=== PATIENT | female | born 1965 | race Caucasian/White ===

== ENCOUNTER 2023-11-08 23:37 | Emergency (ER) | payer OTHER, SELFPAY ==
[2023-11-08 23:40] VITALS: BP 160/66; PULSE 86; RESP 16; TEMP 36.6; O2SAT 98; BMI 35.0
[2023-11-09] VITALS (7 sets, daily range): BP systolic 110–115; BP diastolic 42–51; PULSE 70–76; RESP 13–22; O2SAT 98–99
--- NOTE | 2023-11-09 00:20 | ECG_ITS ---
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
--- NOTE | 2023-11-09 00:29 | ED.GENADUL1 ---
HPI - General Adult General Chief complaint: Back Pain/Injury Stated complaint: BACK PAIN Time Seen by Provider: 11/09/23 00:08 Source: patient Mode of arrival: walk-in Limitations: no limitations History of Present Illness HPI narrative: This 58-year-old female, diabetic presents for evaluation of left upper back pain that started yesterday and has radiated into the front of her chest since that time. She states the pain in the back is underneath her rib cage. It is positional in nature and worse with sitting straight up. She states it started last night and today it worsened. She took some ibuprofen around 1 PM. She has not had any fevers or chills. She has no focal weakness numbness or tingling. She denies any praveena abdominal pain or nausea vomiting. She has no lower extremity pain or swelling. She states that her appetite is been normal. She has not had any vomiting or diarrhea. She denies any worsening of pain with deep breathing. It seems mostly positional for her. She has no lower 70 pain or swelling. She did have COVID 19 last March but has been healthy since that time. She does not having history of kidney stones. She has not had any urinary symptoms or hematuria. She denies a history of chronic back pain or any recent strenuous activity although she was doing a lot of cooking over the and holiday and spent a lot of time on her feet. Related Data Home Medications Medication Instructions Recorded Confirmed amlodipine 5 mg tablet mg 11/08/23 aspirin 81 mg chewable tablet 81 mg PO DAILY 11/08/23 11/08/23 (Aspirin Childrens) atorvastatin 10 mg tablet mg 11/08/23 blood sugar diagnostic (Contour 11/08/23 11/08/23 Next Test Strips) cholecalciferol (vitamin D3) 50 50 mcg PO DAILY 11/08/23 11/08/23 mcg (2,000 unit) capsule insulin lispro 200 unit/mL (3 mL) subcut 11/08/23 subcutaneous pen (Humalog KwikPen U-200 Insulin) insulin pump cart,automated,BT 11/08/23 11/08/23 (Omnipod 5 G6 Pods (Gen 5) subcutaneous cartridge) insulin pump cartridge,automated 11/08/23 11/08/23 dose,BT with controller subcutaneous (Omnipod 5 G6 Intro Kit (Gen 5) subcutaneous cartridge with controller) metformin 500 mg tablet,extended mg PO 11/08/23 release 24 hr Allergies Allergy/AdvReac Type Severity Reaction Status Date / Time lisinopril Allergy Verified 11/08/23 23:44 losartan Allergy Verified 11/08/23 23:44 Review of Systems ROS Status of ROS 10 or more systems reviewed and unremarkable except as noted in history and below PFS PFS Social History Smoking status: Never smoker Exam Narrative Exam Narrative: Nurses note and vital signs reviewed and patient is not hypoxic. Blood pressure is notably elevated at 160/66 General: Overweight female resting currently on the stretcher, no respiratory distress Skin: Warm, dry, no pallor noted. There is no rash noted. Head: Normocephalic, atraumatic Eye: Normal conjunctiva, no drainage, EOMI. PERRL Ears, Nose, Mouth, and Throat: oral mucosa is moist. Cardiovascular: Regular Rate and Rhythm S1S2,, Pulses are brisk and equal bilaterally Respiratory: Patient is in no distress, no accessory muscle use, lungs are clear to auscultation, no wheezing, rales or rhonchi Back: non-tender, no CVA tenderness bilaterally to percussion.No reproducible tenderness in the left or right thoracic or lumbar spine GI: Obese, soft, non-distended, non-tender, normal bowel sounds, no tenderness to palpation, no masses appreciated. No rebound, guarding, or rigidity noted. Musculoskeletal: The patient has no evidence of calf tenderness, no pitting edema, symmetrical pulses noted bilaterally Neurological: A&O x4, normal speech Psychiatric: Cooperative Constitutional Vital Signs, click to edit/add: Last Vital Signs Temp 97.8 F 11/08/23 23:40 Pulse 72 11/09/23 01:03 Resp 13 11/09/23 01:03 BP 110/42 L 11/09/23 02:00 Pulse Ox 98 11/09/23 01:03 O2 Del Method Room Air 11/08/23 23:40 Course Vital Signs Vital signs: Vital Signs Temperature 97.8 F 11/08/23 23:40 Pulse Rate 86 11/08/23 23:40 Respiratory Rate 16 11/08/23 23:40 Blood Pressure 160/66 H 11/08/23 23:40 Pulse Oximetry 98 11/08/23 23:40 Oxygen Delivery Method Room Air 11/08/23 23:40 Temperature 97.8 F 11/08/23 23:40 Pulse Rate 72 11/09/23 01:03 Respiratory Rate 13 11/09/23 01:03 Blood Pressure 110/42 L 11/09/23 02:00 Pulse Oximetry 98 11/09/23 01:03 Oxygen Delivery Method Room Air 11/08/23 23:40 Medical Decision Making MDM Narrative Medical decision making narrative: This 58-year-old female who is a type I diabetic presents for evaluation of left mid to upper back pain that started yesterday and throughout the day radiated around underneath her left breast. She is not having any nausea or vomiting. She denies any praveena chest pain or shortness of breath. She denies any dizziness or syncope. She states the pain is worse when she is sitting up straight. There is no weakness numbness tingling or other neurologic symptoms associated with the back pain. She denies any recent injury or strenuous activity but does state that she was doing a lot of work over the holidays and had to be standing more than she typically would. She has no reproducible tenderness or skin rash. She does not have a history of kidney stones and denies any nausea or urinary symptoms. Due to the fact that she is diabetic with acute onset of this pain I ordered an EKG which is normal sinus rhythm at 70 beats for minute with no acute changes. An IV was placed and she was medicated with IV fluids and Toradol. On reevaluation she states she is feeling better. She has a normal white count and hemoglobin. She has normal electrolytes. She has a normal lipase. Troponin and d-dimer are also normal. Urinalysis is positive for trace leukocyte esterase and 2-5 white blood high-power field. This is likely not causing her back pain. Two-view chest x-ray and x-ray of the thoracic spine was ordered. It shows a moderate scoliosis but no acute infiltrate. She states that she is aware that she has the scoliosis and when she was younger had to wear a back brace. We discussed that in light of her scoliosis, she may have been more active over the holidays than she realized and her symptoms are likely musculoskeletal in nature. She will be discharged home with Rx for a muscle relaxant and 600mg ibuprofen. Medical Records Medical records narrative: The [address] [address] XRay Report Signed Patient: HAYES JEWELL MR#: [id number] : 1965 Acct:[id number] Age/Sex: 58 / F ADM Date: 11/08/23 Loc: ER Attending Dr: Ordering Physician: Ashley Kwon Date of Service: 11/09/23 Procedure(s): XR chest 2V Accession Number(s): [id number] cc: NICKO JOHNSON ; Ashley Marker~ The [place] [address] Patient Name: HAYES JEWELL MRN: [id number] date: 1965 Sex: F Assigned Patient Location: ER Current Patient Location: ER Accession/Order Number: [id number] Exam Date: 11/09/2023 01:30 Report Date: 11/09/2023 02:04 At the request of: ASHLEY MARKER Procedure: XR chest 2V EXAM: XR chest 2V HISTORY: left sided back pain COMPARISON: None. TECHNIQUE: 2 views of the chest were obtained. FINDINGS: The cardiac silhouette is normal in size. The lungs are clear. There is no significant pneumothorax or pleural effusion. No acute osseous abnormality is seen. XR/XR chest 2V IMPRESSION: 1. No acute cardiopulmonary abnormality. Electronically authenticated by: Hang RENDON Date: 11/09/2023 02:0 [place] [address] XRay Report Signed Patient: HAYES JEWELL MR#: [id number] : 1965 Acct:[id number] Age/Sex: 58 / F ADM Date: 11/08/23 Loc: ER Attending Dr: Ordering Physician: Ashley Kwon Date of Service: 11/09/23 Procedure(s): XR thoracic spine 3V Accession Number(s): [id number] cc: NICKO JOHNSON ; Ashley Marker~ The [address] [address] Patient Name: HAYES JEWELL MRN: [id number] date: 1965 Sex: F Assigned Patient Location: ER Current Patient Location: ER Accession/Order Number: [id number] Exam Date: 11/09/2023 01:30 Report Date: 11/09/2023 02:06 At the request of: ASHLEY MARKER Procedure: XR thoracic spine 3V EXAM: XR thoracic spine 3V HISTORY: left sided back pain COMPARISON: None. TECHNIQUE: Lateral, frontal, and swimmer's views of the thoracic spine were obtained. FINDINGS: No acute fracture or subluxation is seen. The vertebral body heights are preserved. There is S-shaped scoliosis of the imaged spine. There are multilevel degenerative changes including endplate osteophytes and degenerative disc disease. The imaged lungs are clear. XR/XR thoracic spine 3V IMPRESSION: 1. No acute osseous abnormality of the thoracic spine is seen. 2. S-shaped scoliosis of the imaged spine with multilevel degenerative changes. Lab Data Labs: Lab Results 11/09/23 11/09/23 Range/Units 00:35 00:39 WBC 11.5 H (4.0-11.0) 10^3/uL RBC 4.64 (4.20-5.40) 10^6/uL Hgb 13.7 (12.0-16.0) g/dL Hct 42.7 (36.0-48.0) % MCV 92.0 (81.0-99.0) fL MCH 29.5 (26.7-34.0) pg MCHC 32.1 (29.9-35.2) g/dL RDW 13.7 (11.0-15.0) % Plt Count 334 (150-450) 10^3/uL MPV 10.7 (9.5-13.5) fL Neut % (Auto) 55.8 (43.0-75.0) % Lymph % (Auto) 33.2 (20.5-60.0) % Sanders % (Auto) 7.9 (1.7-12.0) % Eos % (Auto) 1.8 (0.9-7.0) % Baso % (Auto) 0.8 (0.2-2.0) % Neut # (Auto) 6.4 (1.4-6.5) 10^3/uL Lymph # (Auto) 3.8 (1.2-3.8) 10^3/uL Sanders # (Auto) 0.9 H (0.3-0.8) 10^3/uL Eos # (Auto) 0.2 (0.0-0.7) 10^3/uL Baso # (Auto) 0.1 (0.0-0.1) 10^3/uL Abs Immat Gran (auto) 0.06 H (0.00-0.03) 10^3/uL Imm/Tot Granulo (auto) 0.5 (0.0-0.5) % D-Dimer 0.26 (<=0.59) mg/L FEU Sodium 141 (136-145) mmol/L Potassium 3.7 (3.5-5.1) mmol/L Chloride 103 (98-107) mmol/L Carbon Dioxide 28.4 (21.0-32.0) mmol/L Anion Gap 13.3 BUN 20.0 H (7.0-18.0) mg/dL Creatinine 0.71 (0.55-1.02) mg/dL Est GFR ( Amer) >60 (>=60) Est GFR (Non-Af Amer) >60 (>=60) BUN/Creatinine Ratio 28.2 Glucose 114 H (74-106) mg/dL Calcium 9.8 (8.5-10.1) mg/dL Total Bilirubin 0.4 (0.2-1.0) mg/dL AST 18 (15-37) U/L ALT 33 (14-59) U/L Alkaline Phosphatase 106 (46-116) U/L Troponin I High Sens 4.8 (4.0-51.3) pg/mL Total Protein 8.4 H (6.4-8.2) g/dL Albumin 3.7 (3.4-5.0) g/dL Globulin 4.7 g/dL Albumin/Globulin Ratio 0.8 Lipase 37.0 (16.0-77.0) U/L Urine Color Lt. yellow (YELLOW) Urine Clarity Clear (CLEAR) Urine pH 6.0 (5.0-9.0) Ur Specific [place] <=1.005 A (1.005-1.025) Urine Protein Negative (NEG/TRACE) mg/dL Urine Glucose (UA) Negative (NEGATIVE) mg/dL Urine Ketones Negative (NEGATIVE) mg/dL Urine Occult Blood Negative (NEGATIVE) Urine Nitrite Negative (NEGATIVE) Urine Bilirubin Negative (NEGATIVE) Urine Urobilinogen 0.2 (0.2-1.0) EU/dL Ur Leukocyte Esterase Small A (NEGATIVE) Urine RBC 0-2 (0-2) #/HPF Urine WBC 2-5 A (NONE SEEN) #/HPF Ur Squamous Epith Cells Rare (NONE/RARE) #/LPF Urine Crystals None seen (None Seen) #/HPF Urine Bacteria None seen (NONE SEEN) #/HPF Urine Casts None seen (NONE SEEN) #/LPF Urine Mucus None seen (NONE SEEN) ECG Data Attestation: I personally reviewed and interpreted this ECG as follows: (Sinus rhythm at 70 beats for minute, normal axis, normal intervals, no acute ST segment elevation or T-wave inversion) Discharge Plan Discharge Chief Complaint: Back Pain/Injury Clinical Impression: Scoliosis, Thoracic back pain Patient Disposition: Home, Self-Care Time of Disposition Decision: 02:12 Condition: Good Prescriptions / Home Meds: No Action atorvastatin 10 mg tablet (DME) Contour Next Test Strips Strip MISCELLANEOUS amlodipine 5 mg tablet metformin 500 mg tablet extended release 24 hr PO Humalog KwikPen Insulin 200 unit/mL (3 mL) insulin pen SUBCUT (DME) Omnipod 5 G6 Pods (Gen 5) Cartridge SUBCUT (DME) Omnipod 5 G6 Intro Kit (Gen 5) Cartridge SUBCUT aspirin [Aspirin Childrens] 81 mg tablet,chewable 81 mg PO DAILY cholecalciferol (vitamin D3) 50 mcg (2,000 unit) capsule 50 mcg PO DAILY Instructions: Thoracic Pain (ED), Back Pain (ED) Stand Alone Forms: Portal Instructions Referrals: NICKO JOHNSON [Primary Care Provider] - 1 week Discharge Date/Time: 11/09/23 02:37
[2023-11-09 00:46] LABS: Basophils Absolute Auto 0.1 10^3/uL (0.0-0.1); Basophils Percent Auto 0.8 % (0.2-2.0); Eosinophils Absolute Auto 0.2 10^3/uL (0.0-0.7); Eosinophils Percent Auto 1.8 % (0.9-7.0); Hematocrit 42.7 % (36.0-48.0); Hemoglobin 13.7 g/dL (12.0-16.0); Immature Granulocytes Abs Auto 0.06 10^3/uL (0.00-0.03); Immature Granulocytes Pct Auto 0.5 % (0.0-0.5); Lymphocytes Absolute Auto 3.8 10^3/uL (1.2-3.8); Lymphocytes Percent Auto 33.2 % (20.5-60.0); Mean Corpuscular HGB Conc 32.1 g/dL (29.9-35.2); Mean Corpuscular Hemoglobin 29.5 pg (26.7-34.0); Mean Platelet Volume 10.7 fL (9.5-13.5); Monocytes Absolute Auto 0.9 10^3/uL (0.3-0.8); Monocytes Percent Auto 7.9 % (1.7-12.0); Neutrophils Absolute Auto 6.4 10^3/uL (1.4-6.5); Neutrophils Percent Auto 55.8 % (43.0-75.0); Platelet Count 334 10^3/uL (150-450); Red Blood Count 4.64 10^6/uL (4.20-5.40); Red Cell Distribution Width 13.7 % (11.0-15.0); White Blood Count 11.5 10^3/uL (4.0-11.0)
[2023-11-09] MEDS: 0.9 % SODIUM CHLORIDE 1,000 ML 1000 ML IV (00:49)
[2023-11-09] MEDS: KETOROLAC TROMETHAMINE 30 MG/ML VIAL 15 MG IVP (00:49)
[2023-11-09 00:59] LABS: D Dimer 0.26 mg/L FEU (<=0.59)
[2023-11-09 01:02] LABS: Alanine Aminotransferase 33 U/L (14-59); Albumin Globulin Ratio 0.8; Albumin Level 3.7 g/dL (3.4-5.0); Alkaline Phosphatase 106 U/L (46-116); Anion Gap 13.3; Aspartate Amino Transferase 18 U/L (15-37); BUN Creatinine Ratio 28.2; Bilirubin Total 0.4 mg/dL (0.2-1.0); Calcium 9.8 mg/dL (8.5-10.1); Carbon Dioxide 28.4 mmol/L (21.0-32.0); Chloride 103 mmol/L (98-107); Estimated GFR (African America >60 (>=60); Estimated GFR (Non-African Ame >60 (>=60); Globulin 4.7 g/dL; Glucose 114 mg/dL (74-106); Potassium 3.7 mmol/L (3.5-5.1); Sodium 141 mmol/L (136-145); Total Protein 8.4 g/dL (6.4-8.2); Troponin I High Sensitivity 4.8 pg/mL (4.0-51.3)
--- NOTE | 2023-11-09 01:12 | XR_ITS ---
The [address] [address] Patient Name: HAYES JEWELL MRN: [id number] date: 1965 Sex: F Assigned Patient Location: ER Current Patient Location: ER Accession/Order Number: [id number] Exam Date: 11/09/2023 01:30 Report Date: 11/09/2023 02:04 At the request of: TRINY MARKER Procedure: XR chest 2V EXAM: XR chest 2V HISTORY: left sided back pain COMPARISON: None. TECHNIQUE: 2 views of the chest were obtained. FINDINGS: The cardiac silhouette is normal in size. The lungs are clear. There is no significant pneumothorax or pleural effusion. No acute osseous abnormality is seen. XR/XR chest 2V IMPRESSION: 1. No acute cardiopulmonary abnormality. Electronically authenticated by: Hang RENDON Date: 11/09/2023 02:04
--- NOTE | 2023-11-09 01:12 | XR_ITS ---
The [address] [address] Patient Name: HAYES JEWELL MRN: [id number] date: 1965 Sex: F Assigned Patient Location: ER Current Patient Location: ER Accession/Order Number: [id number] Exam Date: 11/09/2023 01:30 Report Date: 11/09/2023 02:06 At the request of: TRINY MARKER Procedure: XR thoracic spine 3V EXAM: XR thoracic spine 3V HISTORY: left sided back pain COMPARISON: None. TECHNIQUE: Lateral, frontal, and swimmer's views of the thoracic spine were obtained. FINDINGS: No acute fracture or subluxation is seen. The vertebral body heights are preserved. There is S-shaped scoliosis of the imaged spine. There are multilevel degenerative changes including endplate osteophytes and degenerative disc disease. The imaged lungs are clear. XR/XR thoracic spine 3V IMPRESSION: 1. No acute osseous abnormality of the thoracic spine is seen. 2. S-shaped scoliosis of the imaged spine with multilevel degenerative changes. Electronically authenticated by: Hang RENDON Date: 11/09/2023 02:06
[2023-11-09 01:18] LABS: Bilirubin Urine NEGATIVE (NEGATIVE); Blood Urine NEGATIVE (NEGATIVE); Clarity Urine CLEAR (CLEAR); Color Urine LT. YELLOW (YELLOW); Glucose Urine UA NEGATIVE (NEGATIVE); Ketones Urine NEGATIVE (NEGATIVE); Leukocyte Esterase Urine SMALL (NEGATIVE); Nitrite Urine NEGATIVE (NEGATIVE); Protein Urine NEGATIVE (NEG/TRACE); Specific Gravity Urine <=1.005 (1.005-1.025); Urobilinogen Urine 0.2 EU/dL (0.2-1.0)
[2023-11-09 01:25] LABS: Bacteria Urine NONE SEEN #/HPF (NONE SEEN); Cast Seen? NONE SEEN #/LPF (NONE SEEN); Crystals Seen? None Seen #/HPF (None Seen); Mucus Urine NONE SEEN (NONE SEEN); RBC Urine 0-2 #/HPF (0-2); Squamous Epithelial Cell Urine RARE #/LPF (NONE/RARE)
== END 2023-11-09 02:37 | disposition home or self-care (01) ==
PROVIDERS: Emergency Provider Emergency Medicine; PCP Family Medicine
DX: M54.6 Pain in thoracic spine (principal); M41.9 Scoliosis, unspecified; E10.9 Type 1 diabetes mellitus without complications; Z86.16 Personal history of COVID-19; Z79.84 Long term (current) use of oral hypoglycemic drugs; Z79.4 Long term (current) use of insulin; Z96.41 Presence of insulin pump (external) (internal); E66.9 Obesity, unspecified; Z68.35 Body mass index [BMI] 35.0-35.9, adult
CPT/HCPCS: 36415; 71046; 72072; 80053; 81001; 83690; 84484; 85025; 85378; 93005; 96374; 99285; J1885

== ENCOUNTER 2023-11-11 08:22 | Emergency (ER) | payer OTHER, SELFPAY ==
[2023-11-11 08:26] VITALS: BP 174/70; PULSE 79; RESP 16; TEMP 36.6; O2SAT 98; BMI 35.0
--- NOTE | 2023-11-11 08:41 | CT_ITS ---
The [address] [address] Patient Name: HAYES JEWELL MRN: [id number] date: 1965 Sex: F Assigned Patient Location: ER Current Patient Location: ER Accession/Order Number: [id number] Exam Date: 11/11/2023 09:03 Report Date: 11/11/2023 10:01 At the request of: LORY GREER Procedure: CT abdomen pelvis wo con EXAMINATION: CT abdomen pelvis wo con HISTORY: abd pain COMPARISON: No relevant comparison available. TECHNIQUE: Axial, Coronal, and Sagittal images were created without IV contrast. Dose reduction techniques were achieved by using automated exposure control and/or adjustment of mA and/or kV according to patient size and/or use of iterative reconstruction technique. FINDINGS: LUNG BASES: No visible pulmonary or pleural disease. LIVER: No enlargement, atrophy, abnormal density, or significant focal lesion. BILIARY: No dilatation or calcification. PANCREAS: No lesion, fluid collection, ductal dilatation, or atrophy. SPLEEN: No enlargement or focal lesion. ADRENALS: No mass or enlargement. KIDNEYS: No mass, obstruction, or calcification. BOWEL/MESENTERY: No visible mass, obstruction, or bowel wall thickening. AORTA/VASCULAR: No aneurysm or dissection. RETROPERITONEUM: No mass or adenopathy. LYMPH NODES: No adenopathy. URINARY BLADDER: Moderately enlarged urinary bladder PELVIC ORGANS: No visible mass. Pelvic organs appropriate for patient age. ABDOMINAL WALL: No mass or hernia. BONES: Degenerative changes with rotatory dextrocurvature OTHER: Negative. CT/CT abdomen pelvis wo con IMPRESSION: No obstructive uropathy Electronically authenticated by: SHARAD CALHOUN Date: 11/11/2023 10:01
[2023-11-11 08:48] LABS: Basophils Absolute Auto 0.1 10^3/uL (0.0-0.1); Basophils Percent Auto 0.9 % (0.2-2.0); Eosinophils Absolute Auto 0.2 10^3/uL (0.0-0.7); Eosinophils Percent Auto 1.8 % (0.9-7.0); Hematocrit 41.9 % (36.0-48.0); Hemoglobin 13.6 g/dL (12.0-16.0); Immature Granulocytes Abs Auto 0.06 10^3/uL (0.00-0.03); Immature Granulocytes Pct Auto 0.7 % (0.0-0.5); Lymphocytes Absolute Auto 2.7 10^3/uL (1.2-3.8); Lymphocytes Percent Auto 30.9 % (20.5-60.0); Mean Corpuscular HGB Conc 32.5 g/dL (29.9-35.2); Mean Corpuscular Hemoglobin 29.3 pg (26.7-34.0); Mean Corpuscular Volume 90.3 fL (81.0-99.0); Mean Platelet Volume 11.1 fL (9.5-13.5); Monocytes Absolute Auto 0.7 10^3/uL (0.3-0.8); Monocytes Percent Auto 8.2 % (1.7-12.0); Neutrophils Percent Auto 57.5 % (43.0-75.0); Platelet Count 284 10^3/uL (150-450); Red Blood Count 4.64 10^6/uL (4.20-5.40); Red Cell Distribution Width 13.8 % (11.0-15.0); White Blood Count 8.7 10^3/uL (4.0-11.0)
--- NOTE | 2023-11-11 09:06 | ED.GENADUL1 ---
HPI - General Adult General Chief complaint: Abdominal Pain Stated complaint: BACK PAIN/ ABDOMINAL PAIN Time Seen by Provider: 11/11/23 08:33 Source: patient Mode of arrival: walk-in History of Present Illness HPI narrative: Patient is a 58-year-old female who is presenting to the Emergency Room with chief complaint of left lower back pain that radiates to left flank, into the left lower quadrant. Patient was here 2 days ago, had extensive lab work, chest x-ray, thoracic x-ray that showed no significant findings. Patient has a history of scoliosis. Patient has no rash. Patient has no bowel pain, nausea or vomiting. No history kidney stones. No urinary frequency, urgency or burning. Patient does not believe that she is constipated. Patient stated the pain started Tuesday evening on . Patient did a lot of cooking activities a home over , but this was not significantly abnormal for her. 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 No chest pain or shortness of breath. Patient had EKG, d-dimer, and extensive lab studies in a few days ago. Patient chief concern is kidney stone. All systems are negative except as noted/marked. All systems reviewed and otherwise negative. . Nurses note and vital signs reviewed and patient is not hypoxic. General: The patient appears well and in no apparent distress. Patient is resting comfortably on cart. Patient is not toxic, lethargic, or listless Skin: Warm, dry, no pallor noted. There is no rash noted. No petechiae, purpura. Head: Normocephalic, atraumatic Eye: Normal conjunctiva, no drainage, EOMI. PERRL Ears, Nose, Mouth, and Throat: oral mucosa is moist. Cardiovascular: Regular Rate and Rhythm, no murmur, gallop, rub Respiratory: Patient is in no distress, no accessory muscle use, lungs are clear to auscultation, no wheezing, rales or rhonchi Back: Patient has no tenderness to palpation to left parathoracic or left paralumbar muscle tissue at this time, no rash, no flank pain bilateral, otherwise non-tender, no CVA tenderness bilaterally to percussion. No CT LS midline pain GI: soft, obese, No reproduction of pain to left lower quadrant left upper quadrant, no rash, no suprapubic tenderness to palpation, otherwise no tenderness to palpation, no masses appreciated. No rebound, guarding, or rigidity noted. No flank pain bilateral, No distention. Musculoskeletal: Patient has full range of motion of all of the extremities, no motor, sensory, or focal neurological deficits Neurological: A&O x3, normal speech Psychiatric: Cooperative Related Data Home Medications Medication Instructions Recorded Confirmed amlodipine 5 mg tablet mg 11/08/23 aspirin 81 mg chewable tablet 81 mg PO DAILY 11/08/23 11/08/23 (Aspirin Childrens) atorvastatin 10 mg tablet mg 11/08/23 blood sugar diagnostic (Contour 11/08/23 11/08/23 Next Test Strips) cholecalciferol (vitamin D3) 50 50 mcg PO DAILY 11/08/23 11/08/23 mcg (2,000 unit) capsule insulin lispro 200 unit/mL (3 mL) subcut 11/08/23 subcutaneous pen (Humalog KwikPen U-200 Insulin) insulin pump cart,automated,BT 11/08/23 11/08/23 (Omnipod 5 G6 Pods (Gen 5) subcutaneous cartridge) insulin pump cartridge,automated 11/08/23 11/08/23 dose,BT with controller subcutaneous (Omnipod 5 G6 Intro Kit (Gen 5) subcutaneous cartridge with controller) metformin 500 mg tablet,extended mg PO 11/08/23 release 24 hr Allergies Allergy/AdvReac Type Severity Reaction Status Date / Time lisinopril Allergy Verified 11/08/23 23:44 losartan Allergy Verified 11/08/23 23:44 [facility] PFS Social History Smoking status: Never smoker Exam Constitutional Vital Signs, click to edit/add: Last Vital Signs Temp 97.8 F 11/11/23 08:26 Pulse 79 11/11/23 08:26 Resp 16 11/11/23 08:26 BP 142/60 H 11/11/23 10:15 Pulse Ox 98 11/11/23 08:26 O2 Del Method Room Air 11/11/23 08:26 Course Vital Signs Vital signs: Vital Signs Temperature 97.8 F 11/11/23 08:26 Pulse Rate 79 11/11/23 08:26 Respiratory Rate 16 11/11/23 08:26 Blood Pressure 174/70 H 11/11/23 08:26 Pulse Oximetry 98 11/11/23 08:26 Oxygen Delivery Method Room Air 11/11/23 08:26 Temperature 97.8 F 11/11/23 08:26 Pulse Rate 79 11/11/23 08:26 Respiratory Rate 16 11/11/23 08:26 Blood Pressure 142/60 H 11/11/23 10:15 Pulse Oximetry 98 11/11/23 08:26 Oxygen Delivery Method Room Air 11/11/23 08:26 Medical Decision Making MDM Narrative Medical decision making narrative: Patient will have repeat labwork, also had CT the abdomen and pelvis to rule out kidney stone or any other acute pathology. Patient urine, lab workShows no specific changes. Labs and patient's x-rays and testing were reviewed from her Emergency Room visit on November 09. No significant changes today's testing. CT of abdomen and pelvis in no acute findings. Education done at bedside to continue treating pain at home, using ice, stretching, and follow-up with PCP if no improvement in the next week. Patient understands, no questions at discharge. Patient has no kidneys stones, no obstruction, no other acute abdominal findings Which patient was relieved with. Lab Data Labs: Lab Results 11/11/23 11/11/23 11/11/23 Range/Units 08:40 08:54 09:30 WBC 8.7 (4.0-11.0) 10^3/uL RBC 4.64 (4.20-5.40) 10^6/uL Hgb 13.6 (12.0-16.0) g/dL Hct 41.9 (36.0-48.0) % MCV 90.3 (81.0-99.0) fL MCH 29.3 (26.7-34.0) pg MCHC 32.5 (29.9-35.2) g/dL RDW 13.8 (11.0-15.0) % Plt Count 284 (150-450) 10^3/uL MPV 11.1 (9.5-13.5) fL Neut % (Auto) 57.5 (43.0-75.0) % Lymph % (Auto) 30.9 (20.5-60.0) % [place] % (Auto) 8.2 (1.7-12.0) % Eos % (Auto) 1.8 (0.9-7.0) % Baso % (Auto) 0.9 (0.2-2.0) % Neut # (Auto) 5.0 (1.4-6.5) 10^3/uL Lymph # (Auto) 2.7 (1.2-3.8) 10^3/uL [place] # (Auto) 0.7 (0.3-0.8) 10^3/uL Eos # (Auto) 0.2 (0.0-0.7) 10^3/uL Baso # (Auto) 0.1 (0.0-0.1) 10^3/uL Abs Immat Gran (auto) 0.06 H (0.00-0.03) 10^3/uL Imm/Tot Granulo (auto) 0.7 H (0.0-0.5) % Sodium 136 (136-145) mmol/L Potassium 4.1 (3.5-5.1) mmol/L Chloride 104 (98-107) mmol/L Carbon Dioxide 28.8 (21.0-32.0) mmol/L Anion Gap 7.3 BUN 15.0 (7.0-18.0) mg/dL Creatinine 0.69 (0.55-1.02) mg/dL Est GFR ( Amer) >60 (>=60) Est GFR (Non-Af Amer) >60 (>=60) BUN/Creatinine Ratio 21.7 Glucose 138 H (74-106) mg/dL Lactate 1.2 (0.4-2.0) mmol/L Calcium 9.3 (8.5-10.1) mg/dL Total Bilirubin 0.5 (0.2-1.0) mg/dL AST 15 (15-37) U/L ALT 30 (14-59) U/L Alkaline Phosphatase 92 (46-116) U/L Total Protein 7.7 (6.4-8.2) g/dL Albumin 3.4 (3.4-5.0) g/dL Globulin 4.3 g/dL Albumin/Globulin Ratio 0.8 Lipase 25.0 (16.0-77.0) U/L Urine Color Lt. yellow (YELLOW) Urine Clarity Clear (CLEAR) Urine pH 6.0 (5.0-9.0) Ur Specific [place] <=1.005 A (1.005-1.025) Urine Protein Negative (NEG/TRACE) mg/dL Urine Glucose (UA) Negative (NEGATIVE) mg/dL Urine Ketones Negative (NEGATIVE) mg/dL Urine Occult Blood Negative (NEGATIVE) Urine Nitrite Negative (NEGATIVE) Urine Bilirubin Negative (NEGATIVE) Urine Urobilinogen 0.2 (0.2-1.0) EU/dL Ur Leukocyte Esterase Small A (NEGATIVE) Urine RBC None seen (0-2) #/HPF Urine WBC 0-2 A (NONE SEEN) #/HPF Ur Squamous Epith Cells Rare (NONE/RARE) #/LPF Urine Crystals None seen (None Seen) #/HPF Urine Bacteria None seen (NONE SEEN) #/HPF Urine Casts None seen (NONE SEEN) #/LPF Urine Mucus None seen (NONE SEEN) Ur Culture Indicated? No Discharge Plan Discharge Chief Complaint: Abdominal Pain Clinical Impression: Thoracic back pain, Abdominal pain Patient Disposition: Home, Self-Care Condition: Fair Prescriptions / Home Meds: No Action atorvastatin 10 mg tablet (DME) Contour Next Test Strips Strip MISCELLANEOUS amlodipine 5 mg tablet metformin 500 mg tablet extended release 24 hr PO Humalog KwikPen Insulin 200 unit/mL (3 mL) insulin pen SUBCUT (DME) Omnipod 5 G6 Pods (Gen 5) Cartridge SUBCUT (DME) Omnipod 5 G6 Intro Kit (Gen 5) Cartridge SUBCUT aspirin [Aspirin Childrens] 81 mg tablet,chewable 81 mg PO DAILY cholecalciferol (vitamin D3) 50 mcg (2,000 unit) capsule 50 mcg PO DAILY Instructions: Abdominal Pain (ED), Thoracic Pain (ED), Back Pain (ED) Additional Instructions: Continue using anti-inflammatories with food or drink. He may also use Tylenol as well and alternate Tylenol and Advil every 4 hours to help with pain as needed. Use ice to help decrease inflammation and swelling. Follow-up with PCP if no improvement in the next 5-7 days. Stand Alone Forms: Portal Instructions Referrals: NICKO JOHNSON [Primary Care Provider] - 1 week
[2023-11-11 09:18] LABS: Alanine Aminotransferase 30 U/L (14-59); Albumin Globulin Ratio 0.8; Albumin Level 3.4 g/dL (3.4-5.0); Alkaline Phosphatase 92 U/L (46-116); Anion Gap 7.3; Aspartate Amino Transferase 15 U/L (15-37); BUN Creatinine Ratio 21.7; Bilirubin Total 0.5 mg/dL (0.2-1.0); Calcium 9.3 mg/dL (8.5-10.1); Carbon Dioxide 28.8 mmol/L (21.0-32.0); Chloride 104 mmol/L (98-107); Estimated GFR (African America >60 (>=60); Estimated GFR (Non-African Ame >60 (>=60); Globulin 4.3 g/dL; Glucose 138 mg/dL (74-106); Potassium 4.1 mmol/L (3.5-5.1); Sodium 136 mmol/L (136-145); Total Protein 7.7 g/dL (6.4-8.2)
[2023-11-11 09:25] LABS: Lactate/Lactic Acid 1.2 mmol/L (0.4-2.0)
[2023-11-11] MEDS: 0.9 % SODIUM CHLORIDE 1,000 ML 1000 ML IV (09:26)
[2023-11-11 09:53] LABS: Bilirubin Urine NEGATIVE (NEGATIVE); Blood Urine NEGATIVE (NEGATIVE); Clarity Urine CLEAR (CLEAR); Color Urine LT. YELLOW (YELLOW); Glucose Urine UA NEGATIVE (NEGATIVE); Ketones Urine NEGATIVE (NEGATIVE); Leukocyte Esterase Urine SMALL (NEGATIVE); Nitrite Urine NEGATIVE (NEGATIVE); Protein Urine NEGATIVE (NEG/TRACE); Specific Gravity Urine <=1.005 (1.005-1.025); Urine Microscopic Indicated YES; Urobilinogen Urine 0.2 EU/dL (0.2-1.0)
[2023-11-11 10:00] LABS: Bacteria Urine NONE SEEN #/HPF (NONE SEEN); Cast Seen? NONE SEEN #/LPF (NONE SEEN); Crystals Seen? None Seen #/HPF (None Seen); Mucus Urine NONE SEEN (NONE SEEN); RBC Urine NONE SEEN #/HPF (0-2); Squamous Epithelial Cell Urine RARE #/LPF (NONE/RARE); Urine Culture Indicated NO; WBC Urine 0-2 #/HPF (NONE SEEN)
[2023-11-11 10:15] VITALS: BP 142/60
== END 2023-11-11 10:51 | disposition home or self-care (01) ==
PROVIDERS: Emergency Provider Emergency Medicine; PCP Family Medicine
DX: M54.6 Pain in thoracic spine (principal); R10.9 Unspecified abdominal pain; Z79.82 Long term (current) use of aspirin; Z79.4 Long term (current) use of insulin; Z79.899 Other long term (current) drug therapy; Z79.84 Long term (current) use of oral hypoglycemic drugs
CPT/HCPCS: 36415; 74176; 80053; 81001; 83605; 83690; 85025; 99284